=== PATIENT | female | born 1950 | race Caucasian/White ===

== ENCOUNTER → 2016-05-19 09:17 | Outpatient (CLI) | payer MEDICARE, OTHER ==
[2015-11-29 12:04] VITALS: BMI 25.7
[~2016-05-19 09:17] MED LIST: BREO ELLIPTA 21 EACH; HYDROCODON-ACE1 EAC7 PO; LISINOPRIL-HCTZ1 T13 PO; OFEV PO; ROBAXIN-750750 MG PO; VOLTAREN100 MG PO; XANAX1 MG PO; ZYLOPRIM100 MG PO
== END | disposition home or self-care (01) ==
LOC: D.RT 09:00
DX: J84.10 Pulmonary fibrosis, unspecified (principal)

== ENCOUNTER 2016-08-11 11:27 | Day surgery (SDC) | payer MEDICARE, OTHER ==
[~2016-08-11] VITALS: Ht 162.6 cm; Wt 59.1 kg
--- NOTE | ~2016-08-11 | OP ---
PATIENT NAME: DOUGLAS PALOMO MEDICAL RECORD: [id number] :[birth year] LOCATION:[facility] ADMISSION DATE: SURGEON: DWAYNE WARE DO DATE OF OPERATION: 08/11/2016 PROCEDURE: EGD with biopsies. INDICATIONS: Nausea and vomiting as well as generalized abdominal pain. SCOPE: [employer] video gastroscope. MEDICATIONS: Propofol 150 mg IV per anesthesia. ESTIMATED BLOOD LOSS: Minimal. COMPLICATIONS: None. FINDINGS: Informed consent was given. The patient was made comfortable with the above medication. After reaching an adequate level of sedation by slow IV push, the patient was placed on her left side. The endoscope was then advanced under direct visualization through the mouth to the second portion of the duodenum. The upper, middle, and distal thirds of the esophagus appeared normal. At the GE junction, there was some evidence of mild, LA class A, reflux induced esophagitis. The endoscope was advanced beyond the GE junction into the stomach and retroflexed to view the cardia, where a small sliding hiatal hernia was present. The fundus appeared normal. The scope was advanced down through the body of the stomach and into the antrum and prepyloric region. There was some erythema and granularity consistent with possible gastritis. Random biopsies were taken to submit for histology and to rule out H. pylori. The endoscope was advanced through the pylorus into the small bowel where the duodenal bulb and second portion of the duodenum appeared normal. Random biopsies were taken to submit for histology based on symptoms. The scope was withdrawn from the patient. The patient tolerated the procedure well and there were no complications. IMPRESSIONS: 1. Grade A reflux induced esophagitis at the gastroesophageal junction. 2. Small sliding hiatal hernia. 3. Erythema and granularity of the stomach consistent with gastritis, biopsies taken. PLAN AND RECOMMENDATIONS: 1. Discharge home when recovery parameters are met. 2. Continue current diet. 3. Continue current medications. 4. Trial of Protonix 40 mg daily times 6 weeks. 5. If symptoms do not improve with PPI therapy, consider a gastric emptying study based on symptoms. 6. Proceed with colonoscopy for history of positive Hemoccults testing. TRANSINT:[id number] Voice Confirmation ID: [id number] DOCUMENT ID: [id number] OPERATIVE REPORT [id number] DOUGLAS PALOMO DWAYNE WARE DO CC: [id number] DICTATION DATE: 08/11/16 1408 [employer] WR[employer]PER: 08/12/16 0058 [facility] 08/11/16 [facility] [address] [place] [address]
[2016-08-11 12:05] LABS: BASOPHILS 0.7 % (0-2); EOSINOPHILS 5.3 % (0-7); HEMATOCRIT 38.3 % (36.0-48.0); HEMOGLOBIN 12.3 g/dL (12-16); IMMATURE GRANULOCYTES 0.2 % (0-5); LYMPHOCYTES 24.7 % (15-50); MCH 33.3 pg (26.0-34.0); MCHC 32.1 g/dL (31.0-37.0); MCV 103.8 fL (80.0-100.0); MONOCYTES 9.6 % (2-11); NEUTROPHILS 59.5 % (40-80); PLATELET COUNT 194 10x3/uL (130-400); RBC 3.69 10x6/uL (4.00-5.40); RDW 12.4 % (11.5-14.5); WBC 8.2 10x3/uL (4.8-10.8)
[2016-08-11 12:31] LABS: ANION GAP 14.6 mmol/L (8-16); CALCIUM 9.4 mg/dL (8.5-10.1); CARBON DIOXIDE 25.7 mmol/L (21.0-32.0); CREATININE - SERUM 1.5 mg/dL (0.6-1.3); POTASSIUM - SERUM 4.3 mmol/L (3.5-5.1)
[2016-08-11] MEDS ORDERED: NORVASC5 MG PO (12:35)
[2016-08-11] MEDS ORDERED: AMBIEN10 MG PO (12:35)
[2016-08-11 12:36] VITALS: BP 114/64; Ht 162.6 cm; Wt 59.1 kg
--- NOTE | 2016-08-11 14:39 | NUR ---
1430-RETURNED TO ROOM FROM GI LAB. ALERT. VOSHIRA HERE TO REPORT FINDINGS. IV PATENT. O2 ON PER NC PER HOME USE. 1440-FULL LIQUIDS SERVED.
--- NOTE | 2016-08-11 15:01 | NUR ---
1455-IV D/C DISCHARGE INSTRUCTIONS REVIEWED. 1500-D/C VIA WHEELCHAIR WITH SON TO DRIVE HOME.
== END 2016-08-11 15:00 | disposition home or self-care (01) ==
LOC: D.OPS 11:27
PROVIDERS: Anesthesiology
DX: K21.0 Gastro-esophageal reflux disease with esophagitis (principal); K44.9 Diaphragmatic hernia without obstruction or gangrene; Z01.812 Encounter for preprocedural laboratory examination

== ENCOUNTER 2016-08-28 10:40 | Day surgery (SDC) | payer MEDICARE, OTHER ==
[~2016-08-28] VITALS: Ht 160 cm; Wt 63.6 kg
[~2016-08-28 10:40] MED LIST changes: +AMBIEN10 MG PO; +NORVASC5 MG PO
[2016-08-28 11:15] LABS: HEMATOCRIT 39.4 % (36.0-48.0); HEMOGLOBIN 12.9 g/dL (12-16); MCH 33.4 pg (26.0-34.0); MCHC 32.7 g/dL (31.0-37.0); MCV 102.1 fL (80.0-100.0); RBC 3.86 10x6/uL (4.00-5.40); RDW 12.7 % (11.5-14.5); WBC 7.3 10x3/uL (4.8-10.8)
[2016-08-28 11:34] LABS: ANION GAP 15.7 mmol/L (8-16); CALCIUM 9.9 mg/dL (8.5-10.1); CREATININE - SERUM 1.2 mg/dL (0.6-1.3); POTASSIUM - SERUM 3.7 mmol/L (3.5-5.1)
[2016-08-28 11:39] VITALS: BP 127/76; Ht 160 cm; Wt 63.6 kg
--- NOTE | 2016-08-28 15:11 | NUR ---
PT TO ROOM AWAKE. SON AT BEDSIDE. DR. WARE WAS AT BEDSIDE TO DISCUSS PROCEDURAL FINDINGS. VSS. PASSING GAS, FULL LIQUIDS OFFERED. WILL MONITOR.
--- NOTE | 2016-08-28 15:39 | NUR ---
1530- IV D/C'D, PT TOLERATED. CATHETER INTACT. 1535- DISCHARGE INSTRUCTIONS COMPLETED, PT VERBALIZES UNDERSTANDIN. PAPERWORK SIGNED. 1540- PT DISCHARGED VIA WHEELCHAIR WITH SON.
== END 2016-08-28 15:40 | disposition home or self-care (01) ==
LOC: D.OPS 10:40
PROVIDERS: Anesthesiology
DX: K64.8 Other hemorrhoids (principal); Z01.812 Encounter for preprocedural laboratory examination; R19.5 Other fecal abnormalities

== ENCOUNTER → 2017-01-14 11:34 | Outpatient (CLI) | payer MEDICARE, OTHER ==
[2016-08-28 11:39] VITALS: BMI 24.8
[~2017-01-14 11:34] MED LIST changes: +HYDROCODONE-APA1 TAB PO; +MIRALAX17 GM PO
== END | disposition home or self-care (01) ==
LOC: D.RT 11-19 10:00 → D.CT 11-19 11:00 → D.RT 12-02 13:00 → D.CT 12-02 13:00 → D.RT 11:34
DX: Z12.31 Encounter for screening mammogram for malignant neoplasm of breast (principal); J84.10 Pulmonary fibrosis, unspecified

== ENCOUNTER 2017-02-02 12:21 | Observation (INO) | payer MEDICARE, OTHER ==
[~2017-02-02] VITALS: Ht 160 cm; Wt 54.5 kg
[~2017-02-02 12:21] MED LIST changes: -HYDROCODONE-APA1 TAB PO; -MIRALAX17 GM PO
[2017-02-02 15:16] LABS: BASOPHILS 0.4 % (0-2); EOSINOPHILS 0.4 % (0-7); HEMOGLOBIN 11.2 g/dL (12-16); IMMATURE GRANULOCYTES 0.3 % (0-5); LYMPHOCYTES 13.4 % (15-50); MCH 33.5 pg (26.0-34.0); MCHC 32.9 g/dL (31.0-37.0); MCV 101.8 fL (80.0-100.0); MEAN PLATELET VOLUME 9.7 fL (7.4-10.4); MONOCYTES 11.1 % (2-11); NEUTROPHILS 74.4 % (40-80); PLATELET COUNT 194 10x3/uL (130-400); RBC 3.34 10x6/uL (4.00-5.40); RDW 13.6 % (11.5-14.5); WBC 9.8 10x3/uL (4.8-10.8)
[2017-02-02 15:29] LABS: ALBUMIN 2.8 g/dL (3.4-5.0); ANION GAP 13.9 mmol/L (8-16); BILIRUBIN - TOTAL 0.39 mg/dL (0.2-1.3); CALCIUM 9.1 mg/dL (8.5-10.1); CARBON DIOXIDE 24.1 mmol/L (21.0-32.0); CREATININE - SERUM 1.4 mg/dL (0.6-1.3); PROTEIN - SERUM 7.7 g/dL (6.4-8.2)
--- NOTE | 2017-02-02 20:00 | NUR ---
PT ARRIVED TO ROOM 2209 VIA WHEELCHAIR. FAMILY AT BEDSIDE. IV RIGHT AC PATENT. WILL PAGE DR OGDEN FOR PAIN MEDICATION. PT STATES PAIN 8/10 AT THIS TIME. CALL LIGHT IN REACH. WILL CONTINUE WITH PLAN OF CARE.
--- NOTE | 2017-02-02 20:25 | NUR ---
CALL BACK FROM DR OGDEN. ORDERED PAIN MEDICATION HYDRO 10 Q4 PRN FOR BACK PAIN.
[2017-02-02 21:04] VITALS: BP 118/67; Ht 160 cm; Wt 54.5 kg
[2017-02-03 04:00] VITALS: BP 98/49
--- NOTE | 2017-02-03 08:07 | NUR ---
AWAKE AND ALERT. ORIENTED X3. NO C/O AT THIS TIME. LUNGS ARE CLEAR BILATERALLY, OCCASSIONAL DRY COUGH NOTED. SKIN IS INTACT WITHOUT REDNESS. IV TO RIGHT FOREARM IS PATENT WITHOUT REDNESS AT INSERTION SITE. DENIES NEEDS.
[2017-02-03 09:11] VITALS: BP 92/49
--- NOTE | 2017-02-03 10:02 | NUR ---
Rehab Note- Acute Rehab Prscreen order received. The patient has a PT & OT eval awaiting since ER visit. Will await PT eval for mobility. Will follow at this time. Thank you for this referral! Daysi Pittman RN Clinical Liaison, [facility]
[2017-02-03 10:32] LABS: BASOPHILS 0.3 % (0-2); EOSINOPHILS 3.7 % (0-7); HEMATOCRIT 31.8 % (36.0-48.0); HEMOGLOBIN 10.3 g/dL (12-16); IMMATURE GRANULOCYTES 0.3 % (0-5); LYMPHOCYTES 18.2 % (15-50); MCH 33.3 pg (26.0-34.0); MCHC 32.4 g/dL (31.0-37.0); MCV 102.9 fL (80.0-100.0); MEAN PLATELET VOLUME 9.8 fL (7.4-10.4); MONOCYTES 12.3 % (2-11); NEUTROPHILS 65.2 % (40-80); PLATELET COUNT 206 10x3/uL (130-400); RBC 3.09 10x6/uL (4.00-5.40); RDW 13.6 % (11.5-14.5)
[2017-02-03 10:35] LABS: WBC 5.9 10x3/uL (4.8-10.8)
[2017-02-03 10:44] LABS: ALBUMIN 2.4 g/dL (3.4-5.0); ANION GAP 11.6 mmol/L (8-16); BILIRUBIN - TOTAL 0.4 mg/dL (0.2-1.3); CALCIUM 8.7 mg/dL (8.5-10.1); CREATININE - SERUM 1.4 mg/dL (0.6-1.3); POTASSIUM - SERUM 4.6 mmol/L (3.5-5.1); PROTEIN - SERUM 6.8 g/dL (6.4-8.2)
[2017-02-03 11:56] VITALS: BP 105/62
--- NOTE | 2017-02-03 12:00 | NUR ---
LUNCH SERVED IN ROOM. FEEDS SELF. NO CHANGES NOTED.
--- NOTE | 2017-02-03 13:23 | NUR ---
Patient Name: DOUGLAS PALOMO Admission Status: ER Accout number: [id number] Admission Date: 02-02-2017 : 1950 Admission Diagnosis: Attending: OPAL OGDEN Current LOS: 1 Anticipated DC Date: Planned Disposition: Home Primary Insurance: MEDICARE A & B Discharge Planning Comments: CM met with patient to assess discharge planning needs. Patient lives in [place] with her Keanu. Patient stated that she has a cane at home and wears home o2 24/7 and she gets the O2 from [facility] [place]. She does not have any steps in her home. She would like to wait and see if she needs home health. CM will continue to follow and assist with discharge planning needs. PCP: Og Cormier in [place] Keanu Palomo ( ) [phone] Geographic Information Systems Manager: Jazmin Colon * Is the patient Alert and Oriented? Yes 0 * How many steps to enter\exit or inside your home? 0 0 * PCP Og 0 * [facility] in [place] 0 * Preadmission Environment Home with Family 0 * ADLs Independent 0 * Equipment Cane Oxygen 0 * Other Equipment [facility] 0 * List name and contact numbers for known caregivers / representatives who currently or will assist patient after discharge: Keanu Palomo [phone] * Community resources currently utilized None 0 * Additional services required to return to the preadmission environment? Yes 0 * Can the patient safely return to the preadmission environment? Yes 0 * Has this patient been hospitalized within the prior 30 days at any hospital? No 0 Grand Total: 0
[2017-02-03 15:23] VITALS: BP 93/51
--- NOTE | 2017-02-03 16:00 | NUR ---
RESTING QUIETLY IN BED WITH EYES CLOSED. DENIES NEEDS.
--- NOTE | 2017-02-03 17:49 | NUR ---
OT NOTE: PT COMPLETED BUE FM SKILLS . PT COMPLETED BED MOB WITH SBA. THANK YOU, BRANDON BAPTISTE/Janet
[2017-02-03 20:00] VITALS: BP 102/55
[2017-02-04] VITALS: BP 104/52
--- NOTE | 2017-02-04 03:26 | NUR ---
1930)REC'D. IN BED ANGRY BECAUSE IV KEEPS BEEPING.EXPLAINED WHEN YOU BEND YOUR UP FLOOD GETS CUT OFF AND NO PLACE TO GO BECAUSE OF IT BEING IN BEND OF ARM.SO YOU HAVE TO TRY AND KEEP ARM STRAIGHT.STATES HOPE I GET TO GO HOME HOME TOMMORROW.
[2017-02-04 04:00] VITALS: BP 99/58
--- NOTE | 2017-02-04 05:00 | NUR ---
EYES CLOSED RESPIRATIONS WITH EASE AND UNLABORED.
[2017-02-04 05:29] LABS: BASOPHILS 0.3 % (0-2); EOSINOPHILS 4.7 % (0-7); HEMATOCRIT 29.4 % (36.0-48.0); HEMOGLOBIN 9.7 g/dL (12-16); IMMATURE GRANULOCYTES 0.2 % (0-5); LYMPHOCYTES 26.8 % (15-50); MCH 33.8 pg (26.0-34.0); MCV 102.4 fL (80.0-100.0); MEAN PLATELET VOLUME 9.6 fL (7.4-10.4); MONOCYTES 13.7 % (2-11); NEUTROPHILS 54.3 % (40-80); PLATELET COUNT 202 10x3/uL (130-400); RBC 2.87 10x6/uL (4.00-5.40); RDW 13.5 % (11.5-14.5); WBC 6.4 10x3/uL (4.8-10.8)
[2017-02-04 05:58] LABS: ALBUMIN 2.2 g/dL (3.4-5.0); BILIRUBIN - TOTAL 0.21 mg/dL (0.2-1.3); CALCIUM 8.2 mg/dL (8.5-10.1); CARBON DIOXIDE 27.6 mmol/L (21.0-32.0); CREATININE - SERUM 1.2 mg/dL (0.6-1.3); POTASSIUM - SERUM 4.6 mmol/L (3.5-5.1); PROTEIN - SERUM 6.3 g/dL (6.4-8.2)
[2017-02-04 07:57] VITALS: BP 99/60
[2017-02-04 12:30] VITALS: BP 100/57
[2017-02-04] MEDS ORDERED: MIRALAX17 GM PO (13:05)
--- NOTE | 2017-02-04 17:12 | NUR ---
OT NOTE: PT COMPLETED HYGIENE TASK WITH SET UP. PT COMPLETED BED MOB WITH MOD A. THANK YOU, BRANDON BAPTISTE/Janet
--- NOTE | 2017-02-04 18:00 | NUR ---
DISCHARGE INSTRUCTIONS, PRESCRIPTIONS, AND FOLLOW UP APPOINTMENTS DISCUSSED AT THIS TIME. NO QUESTIONS OR CONCERNS VOICED. PIV TO R AC DC'D WITH CATHERTER INTACT. PRESSURE AND DRESSING APPLIED. EXCORTED OUT VIA WC BY DEION BROOKS, TO REHAB.
--- NOTE | 2017-02-04 18:16 | NUR ---
LYING IN BED,WITHOUT DISTRESS.POPEYE IN ROOM WITH PT.
== END 2017-02-04 19:31 ==
LOC: D.ER 12:21 → D.MS 18:52 → OBSVTIME 18:52 → D.MS 18:52
PROVIDERS: Emergency Medicine; ADMIT Family Medicine
DX: R53.1 Weakness (principal); I10 Essential (primary) hypertension; J84.10 Pulmonary fibrosis, unspecified; R53.2 Functional quadriplegia; G72.89 Other specified myopathies; I95.9 Hypotension, unspecified; M54.9 Dorsalgia, unspecified

== ENCOUNTER 2017-02-04 18:20 | Inpatient (IN) | payer MEDICARE ==
[~2017-02-04] VITALS: Ht 160 cm; Wt 54.4 kg
[~2017-02-04 18:20] MED LIST changes: +MIRALAX17 GM PO
--- NOTE | 2017-02-04 21:00 | NUR ---
EXPLAINED TO PT. ADMISSION PROCESS AND SHE STATED SHE UNDERSTOOD. PT. REQUESTED HER HOME MEDICATION FROM UPSTAIRS BE BROUGHT DOWN HERE SO THAT SHE WILL BE ABLE TO TAKE IT TONIGHT SHE ALWAYS DOES. INFORMED PT. I WOULD GET HER MEDICATION. CALL LIGHT WITHIN REACH.
[2017-02-04 23:53] VITALS: BP 98/58; BMI 21.3
--- NOTE | 2017-02-04 23:54 | NUR ---
PT'S ADMISSION ASSESSMENT COMPLETED. NO VOICED NEEDS AND HER CALL LIGHT IS WITHIN REACH.
--- NOTE | 2017-02-05 04:12 | NUR ---
PT. IN BED WITH HOB UP FOR COMFORT. EYES CLOSED AND RESP. DEEP AND EVEN. CALL LIGHT WITHIN REACH.
[2017-02-05 05:16] LABS: ANION GAP 11.5 mmol/L (8-16); CALCIUM 8.9 mg/dL (8.5-10.1); CARBON DIOXIDE 25.5 mmol/L (21.0-32.0); CREATININE - SERUM 1.4 mg/dL (0.6-1.3)
[2017-02-05 06:54] LABS: BASOPHILS 0.2 % (0-2); EOSINOPHILS 4.7 % (0-7); HEMATOCRIT 29.1 % (36.0-48.0); HEMOGLOBIN 9.3 g/dL (12-16); IMMATURE GRANULOCYTES 0.5 % (0-5); LYMPHOCYTES 28.5 % (15-50); MCV 103.2 fL (80.0-100.0); MEAN PLATELET VOLUME 9.9 fL (7.4-10.4); MONOCYTES 14.2 % (2-11); NEUTROPHILS 51.9 % (40-80); PLATELET COUNT 207 10x3/uL (130-400); RBC 2.82 10x6/uL (4.00-5.40); RDW 13.6 % (11.5-14.5); WBC 6.6 10x3/uL (4.8-10.8)
[2017-02-05 08:00] VITALS: BP 106/58
--- NOTE | 2017-02-05 08:00 | NUR ---
SHIFT ASSMT COMPLETED.
[2017-02-05 10:54] VITALS: Ht 160 cm; Wt 54.4 kg
--- NOTE | 2017-02-05 12:00 | NUR ---
EATING LUNCH.DENIES NEEDS.
--- NOTE | 2017-02-05 16:00 | NUR ---
RESTING QUIETLY.CL IN REACH.
--- NOTE | 2017-02-05 18:20 | NUR ---
CALLED FOR REQUESTED PAIN MED.
--- NOTE | 2017-02-05 18:37 | NUR ---
RECIEVED CALL BACK FROM FOR PAIN MED.
--- NOTE | 2017-02-05 20:05 | NUR ---
TALKS TO PT AT BED SIDE.
--- NOTE | 2017-02-05 22:06 | NUR ---
ASSISTED PT TO BATHROOM.
--- NOTE | 2017-02-05 23:47 | NUR ---
REST IN BED, CALL LIGHT IN REACH.
--- NOTE | 2017-02-06 00:45 | NUR ---
RESTING IN BED ON LEFT SIDE. APPEARS COMFORTABLE.
[2017-02-06 03:26] VITALS: BP 98/51
--- NOTE | 2017-02-06 03:42 | NUR ---
REST QUIETLY IN BED, CALL LIGHT IN REACH.
[2017-02-06 06:35] LABS: BASOPHILS 0.5 % (0-2); EOSINOPHILS 3.9 % (0-7); HEMATOCRIT 30.3 % (36.0-48.0); HEMOGLOBIN 9.8 g/dL (12-16); IMMATURE GRANULOCYTES 0.3 % (0-5); LYMPHOCYTES 31.6 % (15-50); MCH 33.3 pg (26.0-34.0); MCHC 32.3 g/dL (31.0-37.0); MCV 103.1 fL (80.0-100.0); MEAN PLATELET VOLUME 9.6 fL (7.4-10.4); MONOCYTES 12.5 % (2-11); NEUTROPHILS 51.2 % (40-80); PLATELET COUNT 224 10x3/uL (130-400); RBC 2.94 10x6/uL (4.00-5.40); RDW 13.4 % (11.5-14.5); WBC 6.4 10x3/uL (4.8-10.8)
[2017-02-06 06:47] LABS: ANION GAP 11.3 mmol/L (8-16); CALCIUM 8.8 mg/dL (8.5-10.1); CARBON DIOXIDE 26.7 mmol/L (21.0-32.0); CREATININE - SERUM 1.3 mg/dL (0.6-1.3)
[2017-02-06 08:10] VITALS: BP 105/54
[2017-02-06] MEDS ORDERED: HYDROCODONE-APA1 TAB PO (08:40)
--- NOTE | 2017-02-06 08:41 | RHP ---
PATIENT: DOUGLAS PALOMO MEDICAL RECORD: [id number] ACCOUNT: [id number] LOCATION:[facility]1119 : [birth year] ADMISSION DATE: 02/04/17 REHABILITATION HISTORY AND PHYSICAL EXAMINATION POST ADMISSION PHYSICIAN EXAMINATION DATE OF ADMISSION: 02/04/2017. ADMITTING DIAGNOSIS: Diffuse myopathy. 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 The patient is a 66-year-old female patient who presented to the Emergency Room with acute pain and new-onset left-sided back and leg pain after approximately a week ago undergoing rhizotomy. 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 She sustained a fall on her couch prior to her acute hospital admit and had proximal muscle weakness, was unable to get up off the floor, and had to crawl to get her cell phone and to call for assistance. She has had oxygen dependence with 2 liters via nasal cannula. She is currently on 3 liters. She has been seen by neurosurgery in acute hospital stay. The patient was started on peptic ulcer disease precautions and DVT precautions, IV fluids, pain control, antiemetics, physical and occupational therapy, electrolyte replacement protocol, and fall precautions. Dr. Escalera felt that this was spreading depression phenomenon post-procedural normally self limited, and will recover approximately in few weeks with physical and occupational therapy. She lives at home with her . She has a rolling walker and a single point cane for assistance. She was independent with her ADLs. She has fatigue and has increased weakness, pain requiring increased O2. She is currently set up for moderate to max assist with ADLs, moderate assist to total assist for mobility, only being able to ambulate about 5 feet. She plans to return home with her and would like to get back at her prior level of functioning or better if possible. COMORBIDITIES: Include disuse myopathy, back pain, weakness, hypertension, pulmonary fibrosis, falls, functional quadriplegia, hypotension, and decreased H&H. PAST MEDICAL HISTORY: Significant for hypertension, pulmonary fibrosis, arthritis, chronic back pain, back and neck problems. PAST SURGICAL HISTORY: Includes knee surgery, hysterectomy, neck surgery, and vertebroplasty. ALLERGIES: PENICILLIN. CURRENT MEDICATIONS: Include hydrochlorothiazide 25 mg daily, Zestril 20 mg daily, allopurinol 100 mg daily. She is on her own medicine from home. She is on zolpidem 10 mg at bedtime, MiraLax 17 grams in 8 ounces of water b.i.d., and Xanax 1 mg t.i.d. p.r.n. HABITS: No alcohol or tobacco use. HISTORY AND PHYSICAL [id number] DOUGLAS PALOMO FAMILY HISTORY: Noncontributory. SOCIAL HISTORY: The patient hopes to return back home and get back to her prior level of functioning or better with her . REVIEW OF SYSTEMS: GENERAL: She does complain of weakness and fatigue. HEENT: Denies cold, cough, or congestion. CARDIOVASCULAR: Denies chest pain. PHYSICAL EXAMINATION: VITAL SIGNS: Stable, afebrile. GENERAL: Elderly female in no acute distress, alert upon exam. HEENT: Normocephalic and atraumatic. Mucosa moist. NECK: Supple. No lymphadenopathy. LUNGS: Clear at this time. HEART: Regular rate and rhythm. ABDOMEN: Benign. EXTREMITIES: No clubbing, cyanosis, or edema. NEUROLOGIC: Nonfocal, but she does have some noted weakness. LABORATORY DATA AND DIAGNOSTIC STUDIES: White count 6.6, H&H 9.3 and 29.1, platelet count was 207, and her MCV is increased to 103.2. Her sodium is 137, potassium 5.0, BUN and creatinine of 33 and 1.4, and blood sugar was noted to be 114. ASSESSMENT: This is a 66-year-old female patient admitted to rehab with a working diagnosis of disuse myopathy complicated by functional quadriplegia from a procedure. The patient has potential to make improvement. We instituted the following multidisciplinary therapies including to, but not limited to physical, occupational, respiratory, speech, nutritional services, prosthetics and orthotics. Given her complex condition and risk for more complications, rehabilitation services cannot be provided at a low level of care such as a halfway facility. PLAN: 1. Admit to [facility] for intensive inpatient therapy to include the following disciplines: A. Physical therapy to improve gait, all transfer skills and bed mobility and modifying level. B. Occupational therapy to improve activities of daily living to a modified level. C. Case management to assist with discharge planning and placement options. D. Nutrition to assist with nutritional needs. E. Rehabilitation nursing to assist in monitoring the patient's underlying medical conditions and to assist with any type of bowel or bladder management. 2. The patient's current medications and medical care will be continued. 3. The patient will be placed on standard fall precautions. 4. The patient's estimated length of stay is approximately 7-10 days. 5. We will go ahead and check a B12 and folate level secondary to elevated MCV. 6. I will follow her up in the a.m. TRANSINT:[id number] Voice Confirmation ID: [id number] DOCUMENT ID: [id number] HISTORY AND PHYSICAL [id number] DOUGLAS PALOMO notes whether there has been none or any medical/functional change since admission: - No change since prescreen. CARMELA attests patient continues to be appropriate for IRF: - Continues to be appropriate. TENNILLE SIMMS MD at 0841 CC: [id number] DICTATION DATE: 02/05/17 0842 MOLDER TRIMMER: 02/05/17 1021 ADM IN [facility] [address] [id number]
--- NOTE | 2017-02-06 10:15 | NUR ---
PATIENT ADMITTED TO REHAB FROM ACUTE FLOOR. DR. WILLIAM IS HER PCP, DME AT HOME CANE AND O2. DISCHARGE PLANS ARE FOR HER TO RETURN HOME WITH HER FAMILY.
--- NOTE | 2017-02-06 18:38 | NUR ---
RESTING QUIETLY IN BED. DENIES NEEDS. CALL LIGHT IN REACH.
[2017-02-06 19:30] VITALS: BP 113/61
--- NOTE | 2017-02-06 21:26 | NUR ---
PT RESTING IN BED VISITING WITH HER . ALERT AND ORIENTED X 3. DENIES PAIN OR DISCOMFORT AT THIS TIME. VSS. O2 IS ON @ 3LPM PER NC. NO SOB NOTED. SR'S ARE UP X2 IN BED. CALL LIGHT AND BEDSIDE TABLE ARE WITHIN EASY REACH.
--- NOTE | 2017-02-06 21:28 | NUR ---
PT IS RESTING QUIETLY IN BED WITH EYES CLOSED. RESPS ARE EVEN AND UNLABORED. NO ACUTE DISTRESS NOTED.
--- NOTE | 2017-02-06 23:57 | NUR ---
RESTING IN BED WITH EYES CLOSED.
--- NOTE | 2017-02-07 01:40 | NUR ---
RESTING IN BED, EYES CLOSED.
--- NOTE | 2017-02-07 06:13 | NUR ---
PT RESTING IN BED WITH EYES CLOSED. NO ACUTE DISTRESS NOTED.
[2017-02-07 09:52] VITALS: BP 115/42
--- NOTE | 2017-02-07 11:15 | NUR ---
D/C HOME WITH ALL PERSONAL BELONGINGS. PT DECLINED TO HAVE ANY MEDS CALLED IN STATING SHE HAD ALL CURRENT MEDS AND CORRECT DOSAGES AT HER HOUSE. REVIEWED D/C PLAN AND F/U APPTS WITH PT. SHE STATED UNDERSTANDING AND DENIES QUESTIONS. SHE HAD PORTABLE OXYGEN IN HER CAR FOR THE RIDE HOME.
--- NOTE | 2017-02-09 09:37 | NUR ---
LATE ENTRY: PATIENT DISCHRGED HOME WITH FAMILY. SHE HAS DECLINED HOME HEALTH OR ANY DME NEEDS AT THIS TIME. DR. WILLIAM/REGAN TEJEDA APN 02/19/17 @ 3:00. SHE IS TO KEEP HER APPOINTMENT WITH HER PAIN CLINIC DOCTOR.
--- NOTE | 2017-03-26 10:20 | DS ---
PATIENT:DOUGLAS PALOMO :48 MEDICAL RECORD: [id number] DISCHARGE SUMMARY ADMISSION DATE: 02/04/17 DISCHARGE DATE: 02/07/17 This is a discharge dated 02/07/2017 from inpatient rehab. PRIMARY DIAGNOSIS: Decreased functional ability and ability to provide activities of daily living secondary to diffuse myopathy. SECONDARY DIAGNOSES: 1. Functional quadriplegia. 2. Pulmonary fibrosis. 3. Chronic back pain. 4. Arthritis. 5. Hypertension. HOSPITAL COURSE: Full H&P is located elsewhere on the chart on this 66-year-old female who was admitted to inpatient rehab for physical therapy and occupational therapy to improve gait, transfer skills, bed mobility, and activities of daily living to a modified independent level. She was evaluated by PT and OT and their plans of care were followed. She required care home care for observation and assessment, medication administration. She remained on appropriate home medications. Electrolytes were managed by protocol. She was cooperative with therapies, progressing towards goals. Case management was involved for discharge planning. She was considered stable for discharge on 02/07/2017. DISCHARGE MEDICATIONS: As per discharge medication reconciliation. DISCHARGE DISPOSITION: The patient is discharged home. She will continue her current diet, level of activity and will follow up with primary care and specialists as directed. At least 30 minutes was spent in this discharge activity. TRANSINT:[id number] Voice Confirmation ID: [id number] DOCUMENT ID: [id number] Dictated By: KEVIN NICKERSON I have interviewed/examined the above patient and agree with these documented findings. TENNILLE SIMMS MD at 1020 at 1023 CC: [id number] DICTATION DATE: 03/22/17 1543 POND TENDER: 03/23/17 1038 DIS IN 02/07/17 [facility] [address] [place] [address]
== END 2017-02-07 11:30 | disposition home or self-care (01) | DRG 91 ==
LOC: D.REHAB 18:20
PROVIDERS: ADMIT Emergency Medicine
DX: G72.89 Other specified myopathies (principal); R53.2 Functional quadriplegia; I10 Essential (primary) hypertension; R53.1 Weakness; J84.10 Pulmonary fibrosis, unspecified; I95.9 Hypotension, unspecified; Z91.81 History of falling; M54.9 Dorsalgia, unspecified